=== PATIENT | male | born 1960 | race Caucasian/White ===

== ENCOUNTER 2017-11-02 17:45 | Emergency (ER) | payer SELFPAY ==
[~2017-11-02] VITALS: Ht 185.4 cm; Wt 95.9 kg
[2017-11-02 17:59] VITALS: BP 136/96; Ht 185.4 cm; Wt 95.9 kg
[2017-11-02] MEDS ORDERED: NEURONTIN 300300 MG PO (18:02)
[2017-11-02] MEDS ORDERED: MOBIC7.5 MG PO (18:02)
== END 2017-11-02 18:54 | disposition left against medical advice (07) ==
LOC: D.ER 17:45
DX: M79.601 Pain in right arm (principal); M25.511 Pain in right shoulder